=== PATIENT | female | born 1980 | race Caucasian/White ===

== ENCOUNTER 2023-12-27 01:29 | Emergency (ER) | payer SELFPAY ==
[2023-12-27 01:31] VITALS: BP 140/84
[2023-12-27 03:19] VITALS: BMI 24.6
--- NOTE | 2023-12-27 04:39 | ED.GENMED ---
History of Present Illness
General
Chief Complaint: Extremity Pain (non-traumatic)
Source: patient
Exam Limitations: none
Time Seen by Provider: 12/27/23 03:26
Nursing documentation reviewed up to this point in time: agreed with
Travel History
Have you had any contact with someone who has COVID-19?: No
Do you have any symptoms of coronavirus? Fever > 100 degrees, chills, cough, shortness of breath, sore throat, loss of taste or smell, muscle aches, or headache?: No
History of Present Illness
History of Present Illness:
Pt with history of chronic back/neck pain, presents to ED secondary to persistent right sided neck pain, radiating down right arm with intermittent numbness sensation after waking up from sleep 2 weeks ago. Denies fever. Denies weakness. Denies
direct trauma. Denies recent illness. Denies chest pain/sob.
Review of Systems
Review of Systems
Allergies reviewed?: Yes
All Other Systems: ROS reviewed and negative except as documented in HPI and ROS
Constitutional: Reports no symptoms
EENT: Reports no symptoms
Respiratory: Reports no symptoms
Cardiac: Reports no symptoms
ABD/GI: Reports no symptoms
: Reports no symptoms
Musculoskeletal: Reports neck pain
Skin: Reports no symptoms
Neurological: Reports numbness
Phy Exam
Physical Exam
Physical Exam:
General: well nourished female, in mild painful distress. afebrile
Heent: nc/at. eomi. no midline tenderness/deformity. mild tenderness to palpation along right side of neck and along back neurovascular bundle with associated arm numbness sensation.
Heart: rrr
Lungs: cta
Abd: soft and nontender.
Neuro: aao x 3. no focal neurological deficit.
Psych: pleasant and cooperative.
Course
Orders/Labs/Results
Orders:
Orders
12/27/23 04:39
Cyclobenzaprine HCl [Flexeril] 10 mg PO NOW STA
Dexamethasone Pf [Decadron] 10 mg PO NOW STA
Vital Signs
Initial and Last Documented VS:
Initial Vital Signs
Temp Pulse Resp BP Pulse Ox
97.8 F 70 22 140/84 100
12/27/23 01:31 12/27/23 01:31 12/27/23 01:31 12/27/23 01:31 12/27/23 01:31
Last Documented Vital Signs
Temp Pulse Resp BP Pulse Ox
97.8 F 71 16 145/96 98
12/27/23 01:31 12/27/23 05:00 12/27/23 05:00 12/27/23 05:00 12/27/23 05:00
MDM/Problems Addressed
MDM/Problems Addressed:
History and exam consistent with likely cervical radiculopathy. No focal neurological deficit noted on exam. Pt will be treated symptomatically with steroids/muscle relaxant. Advised medical clinic follow, as she is currently uninsured and recently
moved to [facility] from [place]. Advised to return to ED with worsening symptoms, i.e neurological deficit. Pt expresses understanding at time of discharge, to the care of her spouse.
*Critical Care Note
Total Time (30-74mins, 75-104mins- exclusive of procedures): Not Applicable
ED Attending Note
-
Portions of this chart may have been created with voice recognition software.� Occasional wrong word or��sound alike� substitutions may have occurred due to the inherent limitations of voice recognition software.
Discharge Plan
Departure
Patient Disposition: Home (Routine Discharge)
Date of Disposition: 12/27/23
Time of Disposition: 04:39
Patient with high blood pressure during this ER visit?: Yes
Discharge Problem:
Cervical radiculopathy
Instructions: Radiculopathy (DC)
Prescriptions:
New
cyclobenzaprine 10 mg tablet
10 mg PO TIDPRN PRN (Reason: muscle spasm) Qty: 14 0RF
methylprednisolone [Medrol ([place])] 4 mg tablets,dose pack
4 mg PO DAILY Qty: 21 0RF
Rx Instructions:
As directed
Referrals:
PRIVATE,PHYSICIAN [Family Provider] -
Activity Restrictions/Additional Instructions:
As discussed, please follow-up with your primary care physician and/or medical clinic for further evaluation and treatment. Your prescriptions have been sent electronically to [facility] pharmacy in [place].
Interventions
Interventions:
*Risk Screen - Suicide Last Done: 12/27/23 01:31
*General Assessment Last Done: 12/27/23 03:08
*Neglect/Abuse Screening Last Done: 12/27/23 01:31
ED- Fall Risk Assessment Last Done: 12/27/23 03:08
*ED COVID-19 Vaccine History Last Done: 12/27/23 03:08
*Nursing Disposition Last Done: 12/27/23 05:00
ED-Skin Assessment Last Done: 12/27/23 03:08
ED-Peripheral Vascular Assessment Last Done: 12/27/23 03:08
ED- Neurological Assessment Last Done: 12/27/23 03:08
ED-Musculoskeletal Assessment Last Done: 12/27/23 03:08
Discharge Date and Time
Discharge Date/Time: 12/27/23 05:00
[2023-12-27] MEDS: FLEXERIL 10 MG PO (04:47)
[2023-12-27] MEDS: DECADRON 10 MG PO (04:47)
[2023-12-27 05:00] VITALS: BP 145/96
== END 2023-12-27 05:00 | disposition home or self-care (01) ==
LOC: EMR 01:29
PROVIDERS: EMERGENCY PHYSICIAN Emergency Medicine
DX: M54.12 Radiculopathy, cervical region (principal); G89.29 Other chronic pain
CPT/HCPCS: 99282